=== PATIENT | male | born 1960 | race Caucasian/White ===

== ENCOUNTER 2017-08-30 18:04 | Emergency (ER) | payer OTHER ==
[~2017-08-30] VITALS: Ht 195.6 cm; Wt 102.1 kg
[2017-08-30] MEDS ORDERED: IV NORMAL SALINE 1,000ML 1,000 ML IV SCH (18:11)
--- NOTE | 2017-08-30 18:23 | PHYS DOC ---
Adult General Chief Complaint Chief Complaint: RAPID HEART RATE HPI HPI Patient is a 56 year old male who presents with complaint of palpitations. Patient states he noticed his symptoms earlier today proximally 7 hours ago. Patient states he has had history of paroxysmal A. fib with RVR in his underwent previous cardioversion for treatment in the past. The patient is not currently on heart medication. Patient states after electrocardioversion he has converted back to sinus rhythm area the patient states that he was previously on Eliquis but is on no blood thinners at this time. Patient denies chest pain or fever. Patient did notice lightheadedness earlier this morning which prompted him to check his pulse. Patient noted he had a high heart rate that was irregular which took them off to being in atrial fibrillation. Patient has taken no medications for his symptoms at this time. Patient states that he has followed with a patient experience coordinator in [place], [place] where he last had his episode in June 2017. The patient states that he does not currently have a primary doctor locally. Review of Systems Review of Systems Constitutional: Lightheadedness, denies fever or chills [] Eyes: Denies change in visual acuity, redness, or eye pain [] HENT: Denies nasal congestion or sore throat [] Respiratory: Denies cough or shortness of breath [] Cardiovascular: Palpitations, denies chest pain[] GI: Denies abdominal pain, nausea, vomiting, bloody stools or diarrhea [] : Denies dysuria or hematuria [] Musculoskeletal: Denies back pain or joint pain [] Integument: Denies rash or skin lesions [] Neurologic: Denies headache, focal weakness or sensory changes [] All other systems were reviewed and found to be within normal limits, except as documented in this note. Current Medications Current Medications Current Medications Medications (Trade) Dose Ordered Sig/Marizol Start Time Stop Time Status Last Admin Dose Admin Sodium Chloride 1,000 ml @ 125 mls/hr Q8H 08/30/17 18:11 08/31/17 02:10 UNV Allergies Allergies Allergies Coded Allergies Type Severity Reaction Last Updated Verified No Known Drug Allergies 08/30/17 No Physical Exam Physical Exam Constitutional: Alert, afebrile, no acute distress, non-toxic appearance. [] HENT: Normocephalic, atraumatic, bilateral external ears normal, oropharynx moist, no oral exudates, nose normal. [] Eyes: PERRLA, EOMI, conjunctiva normal, no discharge. [] Neck: Normal range of motion, no tenderness, supple, no stridor. [] Cardiovascular: Tachycardia, irregular rhythm, no murmur[] Lungs & Thorax: Bilateral breath sounds clear to auscultation [] Abdomen: Bowel sounds normal, soft, no tenderness, no masses, no pulsatile masses. [] Skin: Warm, dry, no erythema, no rash. [] Back: No tenderness, no CVA tenderness. [] Extremities: No tenderness, no cyanosis, no clubbing, ROM intact, no edema. [] Neurologic: Alert and oriented X 3, normal motor function, normal sensory function, no focal deficits noted. [] Current Patient Data Vital Signs Vital Signs Date Time Temp Pulse Resp B/P (MAP) Pulse Ox O2 Delivery O2 Flow Rate FiO2 08/30/17 18:57 154 16 118/48 (71) 96 Room Air 08/30/17 18:19 98.4 Lab Results Laboratory Tests Test 08/30/17 18:15 White Blood Count 8.2 x10^3/uL Red Blood Count 5.36 x10^6/uL Hemoglobin 16.1 g/dL Hematocrit 48.0 % Mean Corpuscular Volume 90 fL Mean Corpuscular Hemoglobin 30 pg Mean Corpuscular Hemoglobin Concent 34 g/dL Red Cell Distribution Width 13.2 % Platelet Count 216 x10^3/uL Neutrophils (%) (Auto) 71 % Lymphocytes (%) (Auto) 20 % Monocytes (%) (Auto) 7 % Eosinophils (%) (Auto) 1 % Basophils (%) (Auto) 1 % Neutrophils # (Auto) 5.8 x10^3uL Lymphocytes # (Auto) 1.6 x10^3/uL Monocytes # (Auto) 0.6 x10^3/uL Eosinophils # (Auto) 0.1 x10^3/uL Basophils # (Auto) 0.1 x10^3/uL Sodium Level 140 mmol/L Potassium Level 3.8 mmol/L Chloride Level 105 mmol/L Carbon Dioxide Level 29 mmol/L Anion Gap 6 Blood Urea Nitrogen 12 mg/dL Creatinine 1.5 mg/dL Estimated GFR (Cockcroft-Gault) 48.8 BUN/Creatinine Ratio 8 Glucose Level 136 mg/dL Calcium Level 8.8 mg/dL Magnesium Level 1.8 mg/dL Total Bilirubin 0.5 mg/dL Aspartate Amino Transf (AST/SGOT) 18 U/L Alanine Aminotransferase (ALT/SGPT) 35 U/L Alkaline Phosphatase 93 U/L Creatine Kinase 148 U/L Creatine Kinase MB (Mass) 0.9 ng/mL Creatine Kinase MB Relative Index 0.6 % Troponin I Quantitative < 0.017 ng/mL LB-[id number]-Type Natriuretic Peptide 3301 pg/mL Total Protein 6.9 g/dL Albumin 3.3 g/dL Albumin/Globulin Ratio 0.9 Current Medications Medications (Trade) Dose Ordered Sig/Marizol Route PRN Reason Start Time Stop Time Status Last Admin Dose Admin Sodium Chloride 1,000 ml @ 125 mls/hr Q8H IV 08/30/17 18:11 08/31/17 02:10 08/30/17 18:11 Diltiazem HCl (Cardizem) 20 mg 1X ONCE IVP 08/30/17 18:30 08/30/17 18:36 DC 08/30/17 18:27 Diltiazem HCl (Cardizem) 25 mg 1X ONCE IVP 08/30/17 18:45 08/30/17 18:46 DC 08/30/17 18:45 Diltiazem HCl 125 mg/Dextrose 125 ml @ 10 mls/hr 1X ONCE IV 08/30/17 19:00 08/31/17 07:29 08/30/17 19:11 Heparin Sodium (Porcine) (Heparin Sodium) 4,000 unit 1X ONCE IV 08/30/17 19:15 08/30/17 19:16 DC Heparin Sodium/ Dextrose 500 ml @ 0 mls/hr CONT PRN IV SEE I/O RECORD 08/30/17 19:15 Digoxin (Lanoxin) 250 mcg 1X ONCE IV 08/30/17 19:15 08/30/17 19:16 DC EKG EKG Interpreted by me: Heart rate 173, atrial fibrillation with rapid ventricular response, normal axis, no acute ST elevations or depressions[] Radiology/Procedures Radiology/Procedures One view AP chest x-ray interpreted by me: No infiltrates, no effusions, mild cardiomegaly[] Course & Med Decision Making Course & Med Decision Making Pertinent Labs and Imaging studies reviewed. (See chart for details) Patient found to be in A. fib with RVR. The patient was administered a total of 45 mg of IV push Cardizem followed by a continuous Cardizem drip per protocol. Patient's heart rate has improved to 130-150. I [address]. Dickerson of cardiology. He recommended initiation of digoxin and recommended that the patient be transferred to [facility] for further care. I spoke with Dr. Scherer, hospitalist, who accepted care of patient in hospital. Patient was informed of plan of care and was in agreement at decision for transfer. Patient will be transferred by ground EMS. Critical care time excluding procedures: 45 minutes Dragon Disclaimer Dragon Disclaimer This electronic medical record was generated, in whole or in part, using a voice recognition dictation system. Departure Departure: Impression: Primary Impression: Atrial fibrillation with RVR Disposition: XFER SHT-TRM HOSP Condition: STABLE IRASEMA NGUYEN MD Aug 30, 2017 18:23
--- NOTE | 2017-08-30 18:25 | EKG ---
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
[2017-08-30] MEDS ORDERED: dilTIAZem 25 MG/5 ML VIAL IVP ONE ×2 (18:30→18:45)
[2017-08-30 18:32] LABS: BASO # 0.1 x10^3/uL (0.0-0.2); BASO % 1 % (0-3); EOS # 0.1 x10^3/uL (0.0-0.7); EOS % 1 % (0-3); HEMOGLOBIN 16.1 g/dL (13.0-17.5); LYMPH # 1.6 x10^3/uL (1.0-4.8); LYMPH % 20 % (24-48); MEAN CORPUSCULAR HEMOGLOBIN 30 pg (25-35); MEAN CORPUSCULAR HGB CONC 34 g/dL (31-37); MEAN CORPUSCULAR VOLUME 90 fL (79-100); MONO # 0.6 x10^3/uL (0.0-1.1); MONO % 7 % (0-9); NEUT # 5.8 x10^3uL (1.8-7.7); NEUT % 71 % (31-73); PLATELET COUNT 216 x10^3/uL (140-400); RED BLOOD COUNT 5.36 x10^6/uL (4.30-5.70); RED CELL DISTRIBUTION WIDTH 13.2 % (11.5-14.5); WHITE BLOOD COUNT 8.2 x10^3/uL (4.0-11.0)
[2017-08-30 18:56] LABS: ALBUMIN 3.3 g/dL (3.4-5.0); ALBUMIN/GLOBULIN RATIO 0.9 (1.0-1.7); CALCIUM 8.8 mg/dL (8.5-10.1); CREATININE 1.5 mg/dL (0.7-1.3); GFR 48.8; MAGNESIUM 1.8 mg/dL (1.8-2.4); POTASSIUM 3.8 mmol/L (3.5-5.1); TOTAL BILIRUBIN 0.5 mg/dL (0.2-1.0); TOTAL PROTEIN 6.9 g/dL (6.4-8.2)
[2017-08-30] MEDS ORDERED: dilTIAZem VIAL 125 MG in IV DEXTROSE 5% 100 ML IV ONE (19:00)
[2017-08-30] MEDS ORDERED: DIGOXIN IV 500 MCG/2 ML AMPUL. IV ONE (19:15)
[2017-08-30] MEDS ORDERED: HEPARIN for IV BOLUS 10,000 UNIT/10 ML VIAL. IV ONE (19:15)
[2017-08-30] MEDS ORDERED: HEPARIN 25,000UTS/500ML PREMIX 500 ML IV PRN (19:15)
[2017-08-30 19:36] VITALS: BP 142/86
--- NOTE | 2017-08-31 08:00 | RAD ---
Portable chest, 08/30/2017: HISTORY: Chest palpitations The heart size and pulmonary vascularity are normal. No pulmonary infiltrate is seen. There is no evidence of pleural fluid. IMPRESSION: No acute cardiopulmonary abnormality is detected. Electronically signed by: Haris Fried MD (08/31/2017 7:57 AM) [facility]
== END 2017-08-30 20:43 | disposition short-term general hospital (02) ==
LOC: ER 18:04
DX: I48.91 Unspecified atrial fibrillation (principal)
CPT/HCPCS: 36415; 71045; 80053; 82553; 83735; 83880; 84484; 85025; 85610; 85730; 93005; 96365; 96375; 96376; 99291; J1160; J1644; J3490; J7030